=== PATIENT | female | born 1980 | race Caucasian/White ===

== ENCOUNTER 2019-09-14 17:11 | Emergency (ER) | payer BC, SELFPAY ==
--- NOTE | ~2019-09-14 | XR_ITS ---
XR ankle RT min 3V 09/14/2019 17:43 Indication: Right ankle pain Procedure: 4 views right ankle Comparison: 12/03/2014 Findings: No acute fracture, subluxation or dislocation. There are corticated ossific densities dista l to the fibula, likely accessory ossicles versus sequela of previous trauma, unchanged. Ankle mortis e intact. Talar dome is normal. Small degenerative calcaneal enthesophyte at the plantar surface. Impression: 1: No acute fracture. Reviewed, dictated and finalized at location A. CAL INSTRUMENT REPAIRER Impression: 1: No acute fracture.
[2019-09-14 17:14] VITALS: BP 131/84; PULSE 101; RESP 20; TEMP 37.7; O2SAT 99
--- NOTE | 2019-09-14 17:19 | ED.GENADULT ---
HPI - General Adult General Chief complaint: Extremity Injury, Lower Stated complaint: rt ankle injury Time Seen by Provider: 09/14/19 17:19 Source: patient Mode of arrival: ambulatory Limitations: no limitations History of Present Illness HPI narrative: 39-year-old female patient presents to the [facility] with complaints of right ankle pain. Patient states that she was at the gym this evening working out and states that she when she came to go and stepped down on her right foot she is unsure exactly what happened but she heard a pop and felt a crack and states she fell. Patient states that she has not been able to bear weight on her right ankle since the injury. Patient states that her mom brought her today and she has been using her mom's walker to get around. Patient denies taking anything for the pain since the incident. Related Data Home Medications Medication Instructions Recorded Confirmed albuterol sulfate [ProAir HFA] INHALATION 09/14/19 alprazolam 09/14/19 aspirin [Aspirin Low Dose] 81 mg PO DAILY 09/14/19 09/14/19 budesonide-formoterol [Symbicort] INHALATION 09/14/19 citalopram mg 09/14/19 hyoscyamine sulfate [Levsin/SL] mg 09/14/19 vit-iron fum-folic ac tablet 09/14/19 [ Vitamin] Allergies Allergy/AdvReac Type Severity Reaction Status Date / Time Sulfa (Sulfonamide Allergy Unknown Rash Unverified 12/27/16 08:55 Antibiotics) sulfamethizole Allergy Unknown Verified 03/12/16 10:18 trimethoprim Allergy Unknown Verified 03/12/16 10:18 Review of Systems Review of Systems: Narrative: CONSTITUTIONAL: Denies fever, chills, or sweats. EYES: Denies visual changes, redness, or discharge. ENT: Denies rhinorrhea, congestion, sore throat, or otalgia. CARDIOVASCULAR: Denies chest pain, palpitations, or edema. RESPIRATORY: Denies cough or dyspnea. GASTROINTESTINAL: Denies abdominal pain, nausea, vomiting, or diarrhea. GENITOURINARY: Denies dysuria or hematuria. SKIN: Denies rash or itching. MUSCULOSKELETAL: Denies back pain, joint pain, or myalgia. Positive right ankle pain NEUROLOGIC: Denies headache, numbness, or weakness. PSYCHIATRIC: Denies anxiety or depression. PMFSH Family History Family History Other Family history of malignant neoplasm Family history of rheumatoid arthritis Hypertension Social History Social History Smoking status: Former smoker Smoking end date: 07/28/11 Alcohol intake: current Comments At the time of my signature I agree with nursing past medical history, surgical, social, and family history. There is no relevant family history pertinent to the presenting complaint. Exam Narrative: Exam Narrative: GENERAL: Well-appearing, well-nourished, and in no acute distress. HEAD: Normocephalic, atraumatic. EYES: PERRLA and EOMI. ENT: Nares clear, no rhinorrhea or epistaxis. Mucous membranes moist. NECK: Supple. No lymphadenopathy CHEST: Clear to auscultation. No respiratory distress. HEART: Regular rate and rhythm. No murmur heard. Normal peripheral pulses. ABDOMEN: Soft, nontender, nondistended, normal active bowel sounds. EXTREMITIES: Patient is unable to bear weight and ambulate without pain to Right ankle. The R ankle is without obvious asymmetry or deformity when compared to the L ankle. Patient can flex/extend, decrease in invert/dallin. No obvious surface trauma, ecchymosis. Patient does have some soft tissue swelling noted over the lateral side of the right ankle. Bony tenderness to palpation over the lateral malleolus. Anterior talofibular ligament, posterior talofibular ligament, calcaneofibular ligament nontender and without swelling. No tenderness or deformity of the midfootor over the proximal fifth metatarsal. Good DP and posterior tibial pulses and sensation to light touch normal. Talar tilt test is negative for ligament laxity to valg
[2019-09-14] MEDS: IBUPROFEN 400 MG TABLET 800 MG PO (17:32)
== END 2019-09-14 18:00 | disposition home or self-care (01) ==
PROVIDERS: Emergency Provider Nurse Practitioner Family; PCP Family Medicine
DX: S93.401A Sprain of unspecified ligament of right ankle, initial encounter (principal); X58.XXXA Exposure to other specified factors, initial encounter; Z87.891 Personal history of nicotine dependence
CPT/HCPCS: 73610; 99213; A9270; G0463

== ENCOUNTER 2020-07-15 08:19 | Outpatient (CLI) | payer BC, SELFPAY ==
--- NOTE | ~2020-07-15 | XR_ITS ---
EXAMINATION: XR chest 2V EXAM DATE: 07/15/2020 08:34 INDICATION: Cough and shortness of breath. Lung bases pain. TECHNIQUE: Frontal and lateral projections of the chest obtained and reviewed. Comparison is made to prior examination from 07/16/2019. FINDINGS: The lungs are clear. There are no pleural effusions. The cardiomediastinal silhouette is within normal limits. There is no pneumothorax suspected. The bones and soft tissues are unremarkab le. There are cholecystectomy clips. IMPRESSION: Normal chest x-ray exam. Reviewed, dictated and finalized at location A. ME TAX ADVISOR IMPRESSION: Normal chest x-ray exam.
== END 2020-07-15 08:20 | disposition home or self-care (01) ==
PROVIDERS: PCP Family Medicine; Visit Provider Family Medicine
DX: R05 Cough (principal)
CPT/HCPCS: 71046

== ENCOUNTER → 2021-02-27 11:57 | Outpatient (CLI) | payer BC, SELFPAY ==
--- NOTE | ~2021-02-27 | US_ITS ---
EXAMINATION: US thyroid DATE: 02/27/2021 12:14 INDICATION: Goiter. TECHNIQUE: Multiple ultrasound images of the thyroid were obtained. COMPARISON: None. FINDINGS: The right thyroid lobe measures 5.1 x 1.9 x 1.7 cm. The left thyroid lobe measures 4.7 x 1.8 x 1.2 c m. In the right thyroid lobe, there is a 1.2 cm solid, hypoechoic, kwrman-vazj-yeve nodule with smoo th margin without echogenic foci (TI-RADS TR5). In the right thyroid lobe, there is a 1.4 cm solid, h ypoechoic, yhuhv-alhe-wbfg nodule with ill-defined margin without echogenic foci (TR4). In the left t hyroid lobe, there is a 1.3 cm solid, hypoechoic, jctfo-xykg-wxbq nodule with smooth margin without e chogenic foci (TR4). In the left thyroid lobe, there is a 1.5 cm solid, hypoechoic, vxbsm-xrob-dzwe n odule with smooth margin without echogenic foci (TR4). IMPRESSION: 1. Multinodular goiter. Ultrasound-guided fine-needle aspiration of 2 nodules is recommended. Reviewed, dictated and finalized at location A. IMPRESSION: 1. Multinodular goiter. Ultrasound-guided fine-needle aspiration of 2 nodules i s recommended.
== END ==
PROVIDERS: PCP Student in an Organized Health Care Education/Training Program; Visit Provider Internal Medicine Endocrinology, Diabetes & Metabolism
DX: E04.2 Nontoxic multinodular goiter (principal)
CPT/HCPCS: 76536

== ENCOUNTER 2021-03-15 08:23 | Day surgery (SDC) | payer BC, SELFPAY ==
[2021-03-15] VITALS (12 sets, daily range): BP systolic 107–133; BP diastolic 53–102; PULSE 60–98; RESP 14–20; TEMP 36–36.4; O2SAT 97–100
--- NOTE | ~2021-03-15 | CT_ITS ---
EXAMINATION: CT abdomen pelvis w con DATE: 03/15/2021 10:10 INDICATION: Diffuse abdominal pain TECHNIQUE: Computed tomography (CT) of the abdomen and pelvis was performed with 100 cc Omnipaque 350 intravenous contrast. The dose-length product was 1485.61 mGy-cm. Automated exposure control and ite rative reconstruction technique were employed. COMPARISON: CT dated 12/23/2007. FINDINGS: There is a 9 mm right lower lobe nodule. There is dependent atelectasis. Status post cholec ystectomy with expected prominence of the bile ducts. There is a 1.5 cm hypodense lesion of the left hepatic lobe. There is a focal hypodensity near the falciform ligament which may represent fatty infi ltration. There is a cyst along the seventh capsular aspect of the left hepatic lobe anteriorly measu ring 12 mm. The spleen, pancreas, adrenal glands and right kidney are unremarkable. There is a left r enal cyst. Colonic diverticulosis without evidence for diverticulitis. Nonobstructive bowel pattern. There is a thickened enhancing appendix, consistent with acute appendicitis. Appendix measures 11.5 mm transvers josseline. No evidence for perforation or abscess. No abnormal pelvic masses or fluid collections. No acute osseous abnormality. There is degenerative disc disease at L5-S1. No evidence for fracture or spondy lolisthesis. IMPRESSION: 1. Acute uncomplicated appendicitis. 2: Right lower lobe nodule measuring 9 mm. Recommend follow-up low dose CT chest and abdomen in 3 mo nths to assess stability. 3: Left hepatic lobe mass measuring 1.5 cm, likely benign in the absence of known malignancy. Recomme nd attention to this area on follow-up CT examination. Reviewed, dictated and finalized at location A. IMPRESSION: 1. Acute uncomplicated appendicitis. 2: Right lower lobe nodule measuring 9 mm. Recommend follow-up low dose CT [address] and abdomen in 3 months to assess stability. 3: Left hepatic lobe mass measuring 1.5 cm, likely benign in the absence of kno wn malignancy. Recommend attention to this area on follow-up CT examination.
--- NOTE | 2021-03-15 08:37 | ED.ABDPAIN ---
HPI - Abdominal Pain General Chief Complaint: Abdominal Pain Stated Complaint: abd pain Time Seen by Provider: 03/15/21 08:37 Source: patient Mode of arrival: ambulatory Limitations: no limitations History of Present Illness HPI narrative: Patient is a 41 yo female with a history of IBS who presents for evaluation of generalized adominal pain. Patient with pain in the epigastric region with radiation to the left flank. Pt reports nausea and vomiting, non bloody, non bilious. She denies fever or chills. She took Levsin, tramadol and CBD at home to try to help with the pain. She has had no improvement with these. She reports diarrhea, but no change from baseline. No urinary symptoms. No recent sick contacts. No lower pelvic pain, no vaginal bleeding or discharge. Pt has followed with Dr. Coates in the past for GI issues. Was diagnosed with IBS from his evaluations. Related Data Home Medications Medication Instructions Recorded Confirmed albuterol sulfate [ProAir HFA] INHALATION 09/14/19 alprazolam 09/14/19 aspirin [Aspirin Low Dose] 81 mg PO DAILY 09/14/19 09/14/19 budesonide-formoterol [Symbicort] INHALATION 09/14/19 citalopram mg 09/14/19 hyoscyamine sulfate [Levsin/SL] mg 09/14/19 vit-iron fum-folic ac tablet 09/14/19 [ Vitamin] Allergies Allergy/AdvReac Type Severity Reaction Status Date / Time Sulfa (Sulfonamide Allergy Unknown Rash Verified 03/15/21 08:42 Antibiotics) sulfamethizole Allergy Unknown Unknown Verified 03/15/21 08:42 trimethoprim Allergy Unknown Unknown Verified 03/15/21 08:42 Review of Systems Review of Systems: CONSTITUTIONAL: Denies fever, chills, or sweats. EYES: Denies visual changes, redness, or discharge. ENT: Denies rhinorrhea, congestion, sore throat, or otalgia. CARDIOVASCULAR: Denies chest pain, palpitations, or edema. RESPIRATORY: Denies cough or dyspnea. GASTROINTESTINAL: Reports abdominal pain, nausea and vomiting, reports diarrhea GENITOURINARY: Denies dysuria or hematuria. SKIN: Denies rash or itching. MUSCULOSKELETAL: Denies back pain, joint pain, or myalgia. NEUROLOGIC: Denies headache, numbness, or weakness. PMFSH Past Medical History Medical History Contusion of ankle Endometriosis IBS (irritable bowel syndrome) Moderate ankle sprain Retrocalcaneal bursitis (back of heel) Surgical History Surgical History History of D&C History of endometrial ablation History of laparoscopic cholecystectomy History of laparoscopy Family History Family History Other Family history of malignant neoplasm Family history of rheumatoid arthritis Hypertension Social History Social History Smoking status: Former smoker Smoking end date: 07/28/11 Alcohol intake: current Exam Narrative: GENERAL: Awake, alert, conversant HEAD: Normocephalic, atraumatic. EYES: PERRLA and EOMI. ENT: Nares clear, no rhinorrhea or epistaxis. Mucous membranes moist. NECK: Supple. CHEST: No respiratory distress, breathing even and non labored HEART: Regular rate, sinus rhythm ABDOMEN:Non distended, mildly tender throughout, no rebound or guarding EXTREMITIES: Normal range of motion. No edema. SKIN: Warm, dry, no rash. NEURO:No focal deficits. Alert and oriented x3 Course Vital Signs Vital signs: Vital Signs Temperature 36.4 C 03/15/21 08:33 Pulse Rate 76 03/15/21 08:33 Respiratory Rate 18 03/15/21 08:33 Blood Pressure 133/102 H 03/15/21 08:33 Pulse Oximetry 98 03/15/21 08:33 Temperature 36.4 C 03/15/21 08:33 Pulse Rate 70 03/15/21 11:19 Respiratory Rate 17 03/15/21 11:19 Blood Pressure 124/94 H 03/15/21 11:19 Pulse Oximetry 100 03/15/21 11:19 MDM - Abdominal Pain MDM Narrative Medical decision farhad
[2021-03-15 09:21] LABS: Basophils Percent Auto 0.2 % (0.2-1.2); Eosinophils Absolute Auto 0.1 K/mm3 (0-0.3); Eosinophils Percent Auto 0.6 % (0-4.4); Hematocrit 41.3 % (37.0-47.0); Hemoglobin 13.3 g/dL (12.0-15.0); Immature Granulocyte Absolute 0.06 K/mm3 (0.00-0.031); Immature Granulocyte Percent A 0.5 % (0-0.5); Lymphocytes Absolute Auto 1.45 K/mm3 (0.9-3.2); Mean Corpuscular HGB Conc 32.2 g/dl (32-36); Mean Corpuscular Hemoglobin 29.8 pg (26-34); Mean Corpuscular Volume 92.6 fl (80-100); Mean Platelet Volume 11.5 fl (7.4-10.4); Monocytes Absolute Auto 0.7 K/mm3 (0.1-0.6); Neutrophils Absolute Auto 10.9 K/mm3 (1.3-6.7); Neutrophils Percent Auto 82.7 % (45.5-73.1); Platelet Count Result 206 k/mm3 (150-375); Red Blood Count 4.46 M/mm3 (4.2-5.4); Red Cell Distribution Width 12.6 % (11.5-14.5); White Blood Count 13.1 K/mm3 (4.5-10.0)
[2021-03-15] MEDS: SODIUM CHLORIDE 0.9% IV 1,000 ML 999 ML IV CONT (09:31)
[2021-03-15] MEDS: FAMOTIDINE 20 MG/2 ML VIAL IV PUSH ×2 (09:33→11:04)
[2021-03-15 09:34] LABS: Alanine Aminotransferase 21 U/L (4-35); Albumin Level 4.5 g/dL (3.5-5.1); Alkaline Phosphatase 95 U/L (38-126); Anion Gap 7 mmol/L (8-16); Aspartate Amino Transferase 25 U/L (14-36); Bilirubin,Total 0.4 mg/dL (0.2-1.3); Blood Urea Nitrogen 21 mg/dL (7-17); Calcium 9.4 mg/dL (8.4-10.2); Carbon Dioxide 21 mmol/L (22-30); Chloride 108 mmol/L (98-107); Estimated CRCL calculation 102 ml/min; Estimated Glomerular Filt Rate > 60; Glucose 100 mg/dL (65-110); Lipase 95 U/L (23-300); Potassium 4.7 mmol/L (3.4-5.0); Sodium 136 mmol/L (137-145)
[2021-03-15] MEDS: MORPHINE SULFATE (*CRX) 4 MG/ML INJ IV PUSH (09:34)
[2021-03-15] MEDS: ONDANSETRON INJ 4 MG/2 ML VIAL IV PUSH (09:34)
[2021-03-15 09:44] LABS: Add Urine Microscopic? NO; Appearance Urine Clear (Clear); Bilirubin Urine Negative (Negative); Blood Urine Negative (Negative); Color Urine Yellow (Yellow); Glucose Urine UA Negative (Negative); Ketones Urine Negative (Negative); Leukocyte Esterase Ur Negative LEU/UL (Negative); Nitrate Urine Negative (Negative); Protein Urine Negative (Negative); Specific Grav Ur 1.021 (1.001-1.035); Urobilinogen Urine Negative mg/dL (<2.0)
[2021-03-15] MEDS: HYDROmorphone HCL INJ (*CRX) 1 MG/ML SYR 0.5 MG IV PUSH (10:46)
--- NOTE | 2021-03-15 11:43 | PM.IMHP ---
H&P: HPI History of Present Illness Date/Time: 03/15/21 11:43 Chief Complaint: Generalized abdominal pain Narrative: This is a 41-year-old woman who presented to the emergency department with abdominal pain that started around 2:30 this morning. She states that pain was epigastric and also has been present in both lower quadrants. She was also experiencing nausea and vomiting. She has a history of IBS and thought this might be related to that at 1st, but pain continued to progress and she decided to come into the ED. she denies any other ill contacts and denies prior history of pain like this in the past. She does have chronic diarrhea from IBS, but no other change in bowel habits. No urinary difficulties. Review of Systems Review of Systems: All systems reviewed & are unremarkable except as noted in HPI and below Constitutional: Constitutional: Denies chills and Denies fever(s) Eyes: Eyes: Denies change in vision ENT: Denies hearing loss, Denies neck pain and Denies sore throat Cardiovascular: Cardiovascular: Denies chest pain and Denies dyspnea Respiratory: Respiratory: Denies cough, Denies dyspnea and Denies wheezing Gastrointestinal: Gastrointestinal: Reports as per HPI Genitourinary: Genitourinary: Denies hematuria and Denies dysuria Musculoskeletal: Musculoskeletal: Denies arthralgias, Denies joint swelling and Denies neck pain Allergic/Immunologic: Allergic/Immunologic: Denies wheezing PMFSH Past Medical History Medical History Contusion of ankle Endometriosis IBS (irritable bowel syndrome) Moderate ankle sprain Retrocalcaneal bursitis (back of heel) Surgical History Surgical History History of D&C History of endometrial ablation History of laparoscopic cholecystectomy History of laparoscopy Family History Family History Other Family history of malignant neoplasm Family history of rheumatoid arthritis Hypertension Social History Social History Smoking status: Former smoker Smoking end date: 07/28/11 Alcohol intake: current Meds Home Medications and Allergies Home Medications Medication Instructions Recorded Confirmed Type albuterol sulfate [ProAir HFA] INHALATION 09/14/19 History alprazolam 09/14/19 History aspirin [Aspirin Low Dose] 81 mg PO DAILY 09/14/19 09/14/19 History budesonide-formoterol [Symbicort] INHALATION 09/14/19 History citalopram mg 09/14/19 History hyoscyamine sulfate [Levsin/SL] mg 09/14/19 History vit-iron fum-folic ac tablet 09/14/19 History [ Vitamin] Allergies Allergy/AdvReac Type Severity Reaction Status Date / Time Sulfa (Sulfonamide Allergy Unknown Rash Verified 03/15/21 08:42 Antibiotics) sulfamethizole Allergy Unknown Unknown Verified 03/15/21 08:42 trimethoprim Allergy Unknown Unknown Verified 03/15/21 08:42 Vital Signs Vital Signs - 24 hr 03/15/21 08:33 03/15/21 11:19 Temperature 36.4 C Pulse Rate 76 70 Respiratory Rate 18 17 Blood Pressure 133/102 H 124/94 H Pulse Oximetry 98 100 Exam Const: General: alert; No acute distress Orientation/consciousness: patient oriented x3 Limitations: no limitations HENMT: Head: normocephalic and atraumatic Ears: hearing grossly normal bilaterally General nose exam: Normal external nose present and Normal nares present Mouth: Yes Normal oral and palatal mucosa present and Yes moist mucous membranes Eyes: General: appearance normal, both eyes and all related structures Conjunctivae: conjunctivae normal Sclera: sclerae normal Pupils: Equal, round and reactive pupils present EOM: EOMs intact bilaterally Neck: Neck: normal visual inspection, full ROM, no lymphadenopathy, supple and no JVD Lymphatic: no lymphadenopathy noted Chest:
--- NOTE | 2021-03-15 12:53 | WPDANESEPPF ---
Anes - Initial Pre Proc Eval Procedure: Operation Date: 03/15/21 15:30 Proposed Procedures p Laparoscopic Appendectomy,Possibe Open - Nitish Aden DO Date/Time: 03/15/21 12:53 Surgeon: Nitish Aden DO Pre Op Diagnosis: abd pain Patient Data Age: 41 Gender: F Height: 1.75 m Weight: 120.45 kg Last Vital Signs Temp 36.4 C 03/15/21 08:33 Pulse 70 03/15/21 11:19 Resp 17 03/15/21 11:19 BP 124/94 H 03/15/21 11:19 Pulse Ox 100 03/15/21 11:19 Allergies Allergy/AdvReac Type Severity Reaction Status Date / Time Sulfa (Sulfonamide Allergy Unknown Rash Verified 03/15/21 08:42 Antibiotics) sulfamethizole Allergy Unknown Unknown Verified 03/15/21 08:42 trimethoprim Allergy Unknown Unknown Verified 03/15/21 08:42 Home Medications Medication Instructions Recorded Confirmed Type albuterol sulfate [ProAir HFA] INHALATION 09/14/19 History alprazolam 09/14/19 History aspirin [Aspirin Low Dose] 81 mg PO DAILY 09/14/19 09/14/19 History budesonide-formoterol [Symbicort] INHALATION 09/14/19 History citalopram mg 09/14/19 History hyoscyamine sulfate [Levsin/SL] mg 09/14/19 History vit-iron fum-folic ac tablet 09/14/19 History [ Vitamin] Laboratory Tests 03/15/21 03/15/21 03/15/21 09:13 09:13 09:28 WBC 13.1 K/mm3 H K/mm3 (4.5-10.0) RBC 4.46 M/mm3 M/mm3 (4.2-5.4) Hgb 13.3 g/dL g/dL (12.0-15.0) Hct 41.3 % % (37.0-47.0) MCV 92.6 fl fl (80-100) MCH 29.8 pg pg (26-34) MCHC 32.2 g/dl g/dl (32-36) RDW 12.6 % % (11.5-14.5) Plt Count 206 k/mm3 k/mm3 (150-375) MPV 11.5 fl H fl (7.4-10.4) Immature Gran % (Auto) 0.5 % % (0-0.5) Neut % (Auto) 82.7 % H % (45.5-73.1) Lymph % (Auto) 11.0 % L % (18.3-44.2) [place] % (Auto) 5.0 % % (2.6-8.5) Eos % (Auto) 0.6 % % (0-4.4) Baso % (Auto) 0.2 % % (0.2-1.2) Lymph # (Auto) 1.45 K/mm3 K/mm3 (0.9-3.2) [place] # (Auto) 0.7 K/mm3 H K/mm3 (0.1-0.6) Eos # (Auto) 0.1 K/mm3 K/mm3 (0-0.3) Baso # (Auto) 0.0 K/mm3 K/mm3 (0.0-0.1) Abs Immat Gran (auto) 0.06 K/mm3 H K/mm3 (0.00-0.031) Absolute Neuts (auto) 10.9 K/mm3 H K/mm3 (1.3-6.7) Absolute Nucleated RBC 0.0 K/mm3 K/mm3 (0.0-0.012) Nucleated RBC % 0.0 % % (0.0-0.2) Sodium 136 mmol/L L mmol/L (137-145) Potassium 4.7 mmol/L mmol/L (3.4-5.0) Chloride 108 mmol/L H mmol/L (98-107) Carbon Dioxide 21 mmol/L L mmol/L (22-30) Anion Gap 7 mmol/L L mmol/L (8-16) BUN 21 mg/dL H mg/dL (7-17) Creatinine 0.90 mg/dL mg/dL (0.7-1.0) Estim Creat Clear Calc 102 ml/min ml/min Estimated GFR > 60 (59 - ) Glucose 100 mg/dL mg/dL (65-110) Calcium 9.4 mg/dL mg/dL (8.4-10.2) Total Bilirubin 0.4 mg/dL mg/dL (0.2-1.3) AST 25 U/L U/L (14-36) ALT 21 U/L U/L (4-35) Alkaline Phosphatase 95 U/L U/L (38-126) Total Protein 8.0 g/dL g/dL (6.3-8.2) Albumin 4.5 g/dL g/dL (3.5-5.1) Lipase 95 U/L U/L (23-300) Urine Color Yellow (Yellow) Urine Appearance Clear (Clear) Urine pH 6.0 (5.0-9.0) Ur Specific [place] 1.021 (1.001-1.035) Urine Protein Negative mg/dL mg/dL (Negative) Urine Glucose (UA) Negative mg/dL mg/dL (Negative) Urine Ketones Negative mg/dL mg/dL (Negative) Ur Blood (Man) Negative (Negative) Urine Nitrate Negative (Negative) Urine Bilirubin Negative (Negative) Urine Urobilinogen Negative mg/dL mg/dL (<2.0) Leukocyte Esterase Rfl Negative MILTON/UL MILTON/UL (Negative) Patient hx anesthesia
[2021-03-15] MEDS: SODIUM CHLORIDE 0.9% IV 1,000 ML 150 ML IV CONT (13:21)
[2021-03-15] MEDS: KETOROLAC 15 MG/ML VIAL (*BKC) IV PUSH (13:23)
--- NOTE | 2021-03-15 14:56 | WPDHPUPDATE1 ---
History and Physical Update Update Date/Time: 03/15/21 14:56 History and Physical has been reviewed, including an updated exam of the patient. There are NO changes in the patient's condition. Risks, benefits, and alternatives have been discussed and questions answered. Patient agrees to proceed with procedure.
[2021-03-15] MEDS: LACTATED RINGERS 1,000 ML 30 ML IV CONT ×2 (15:07→16:45)
[2021-03-15] MEDS: BUPIVACAINE/EPINEPHRINE 0.5% 30 ML VIAL INFILTRATE (15:42)
--- NOTE | 2021-03-15 17:33 | W.PM.PROC2 ---
Procedure Note - Detailed Date of Procedure 03/15/21 Pre-op Diagnosis Acute appendicitis Post-op Diagnosis same Procedure Performed Laparoscopic appendectomy Surgeon Nitish Aden, DO Anesthesia general and local (0.5% bupivicaine with epinephrine) Indications This is a 41-year-old woman who presented to the emergency department today with complaints of abdominal pain that woke her from sleep around 230 this morning. She has had generalized abdominal pain and epigastric pain. She was also experiencing nausea and vomiting. She denies any fevers or chills. Workup in the emergency department showed evidence of an elevated white blood count and CT showed evidence acute appendicitis. Discussions were made with the patient about treatment options and decision was made to proceed with laparoscopic appendectomy, possible open. Findings Laparoscopic appendectomy was performed. The appendix appeared to be in a retrocecal retroperitoneal location. The appendix was dilated and inflamed, but there was no evidence of perforation or abscess. No other intra-abdominal abnormalities were noted. The base of the appendix appeared healthy and viable. The appendix was removed and sent to the lab for pathology. Description of Procedure Procedure as well as risks, benefits, and alternatives were explained to the patient. The patient agreed to proceed. Written consent was obtained and placed in chart prior to procedure. The patient was brought back to surgical suite. She was placed supine on operating table. Time-out was done to confirm the patient and procedure. The patient was then intubated by the Anesthesia Department. She abdomen was prepped and draped in sterile fashion using chlorhexidine prep. A 5 mm incision was made just to the left of the patient's umbilicus and a 5 mm Optiview trocar was advanced through the abdominal layers under direct visualization. Once inside the peritoneal cavity, carbon dioxide insufflation was used to create a pneumoperitoneum. The camera was inserted and the abdomen was inspected. No immediate abnormalities were identified. The patient was then placed in slight Trendelenburg position and rotated to the left. A 5 mm incision was made in the suprapubic region in midline and a 5 mm trocar was inserted under direct visualization. A 12 mm incision was made in the left lower quadrant and a 12 mm trocar was inserted under direct visualization. The right lower quadrant was carefully inspected. The cecum was identified and then this was traced back to the appendix. The appendix was identified and grasped at the mesoappendix and lifted anteriorly. Careful blunt dissection was carried out at the base of the appendix through the mesoappendix using a [place] grasper. An Endo-KRISTEN 45 mm blue load stapler was then advanced across the base of the appendix and clamped and fired. A white reload was then clamped across the mesoappendix and fired. This freed up our appendix completely. It was then placed in an EndoCatch bag and removed through the left lower quadrant port. The staple lines were then inspected. Hemostasis appeared adequate and the staple lines appeared secure. The area was then irrigated with sterile saline. The pelvis was then carefully inspected and irrigated with sterile saline as well and the remainder of the abdomen was carefully inspected. The patient was then flattened out in bed. One final inspection was made around the abdominal cavity and no other abnormalities were seen. The left lower quadrant port was removed and a Omar-Isabel cone was used to approximate the fascia with an 0 Vicryl simple interrupted suture. The remaining ports were then removed under direct visualization. The camera was removed and the pneumoperitoneum was released. 0.5% bupivacaine with epinephrine was infiltrated locally around each of the incisions. The skin of the incisions was then approximated using 4-0 Monocryl subcuticular suture an
== END 2021-03-15 18:31 | disposition home or self-care (01) ==
LOC: ANHED 11:13 → ANHSURGERY 11:27
PROVIDERS: Emergency Provider Emergency Medicine; PCP Student in an Organized Health Care Education/Training Program; Visit Provider Surgery
PROC: 0DTJ4ZZ Resection of Appendix, Percutaneous Endoscopic Approach (ICD-10-PCS; CPT 44970; principal; 2021-03-15 15:30)
DX: K35.30 Acute appendicitis with localized peritonitis, without perforation or gangrene (principal); R10.9 Unspecified abdominal pain; Z79.82 Long term (current) use of aspirin; Z79.51 Long term (current) use of inhaled steroids; N80.9 Endometriosis, unspecified; K58.9 Irritable bowel syndrome, unspecified; Z87.891 Personal history of nicotine dependence; E66.9 Obesity, unspecified; Z68.39 Body mass index [BMI] 39.0-39.9, adult; R10.84 Generalized abdominal pain; R10.13 Epigastric pain
CPT/HCPCS: 44970; 36415; 74177; 80053; 81003; 81025; 83690; 85025; 88304; 96361; 96374; 96375; 99285; J0131; J0330; J1100; J1170; J1885; J2250; J2270; J2405; J2543; J2704; J3010; J7030; J7120; Q9967

== ENCOUNTER → 2021-07-24 10:47 | Outpatient (CLI) | payer BC, SELFPAY ==
[2021-07-25 03:59] LABS: SARS-CoV-2 RNA PCR Negative
== END ==
PROVIDERS: PCP Student in an Organized Health Care Education/Training Program; Visit Provider Student in an Organized Health Care Education/Training Program
DX: R50.9 Fever, unspecified (principal); Z20.822 Contact with and (suspected) exposure to COVID-19
CPT/HCPCS: C9803; U0003; U0005

== ENCOUNTER 2022-04-30 02:05 | Day surgery (SDC) | payer BC, SELFPAY ==
[2022-04-15 14:12] VITALS: BMI 40.0
[2022-04-30 09:19] VITALS: BP 134/87; PULSE 96; RESP 18; TEMP 36.3; O2SAT 98
[2022-04-30] MEDS: LACTATED RINGERS 1,000 ML 150 ML IV CONT (09:22)
--- NOTE | 2022-04-30 09:38 | WPDANESEPPF ---
Anes - Initial Pre Proc Eval Procedure: Operation Date: 04/30/22 10:45 Proposed Procedures p Colonoscopy - Carlos Bhatt MD Date/Time: 04/30/22 09:38 Surgeon: Carlos Bhatt MD Pre Op Diagnosis: IBS Patient Data Age: 42 Gender: F Height: 1.75 m Weight: 126.2 kg Last Vital Signs Temp 97.3 F L 04/30/22 09:19 Pulse 96 04/30/22 09:19 Resp 18 04/30/22 09:19 BP 134/87 04/30/22 09:19 Pulse Ox 98 04/30/22 09:19 O2 Del Method Room Air 04/30/22 09:19 Allergies Allergy/AdvReac Type Severity Reaction Status Date / Time Sulfa (Sulfonamide Allergy Unknown Rash Verified 04/30/22 09:18 Antibiotics) sulfamethizole Allergy Unknown Unknown Verified 04/30/22 09:18 trimethoprim Allergy Unknown Unknown Verified 04/30/22 09:18 latex Allergy Rash Verified 04/30/22 09:18 cefdinir AdvReac Nausea and Verified 04/30/22 09:18 Vomiting Home Medications Medication Instructions Recorded Confirmed Type albuterol sulfate 90 mcg/actuation 1 inh inhalation DAILY PRN 09/14/19 04/30/22 History aerosol inhaler (ProAir HFA) Shortness Of Breath alprazolam 0.5 mg tablet 0.5 mg DAILY PRN Anxiety 09/14/19 04/30/22 History aspirin 81 mg tablet,delayed 81 mg PO DAILY 09/14/19 04/30/22 History release (Agnes Low Dose Aspirin) budesonide-formoterol HFA 80 1 inh inhalation DAILY 09/14/19 04/30/22 History mcg-4.5 mcg/actuation aerosol inhaler (Symbicort) citalopram 20 mg tablet 20 mg PO DAILY 09/14/19 04/30/22 History hyoscyamine sulfate 0.125 mg 0.125 mg PO DAILY 09/14/19 04/30/22 History sublingual tablet (Levsin/SL) hydrochlorothiazide 12.5 mg capsule 12.5 mg PO DAILY 04/15/22 04/30/22 History levothyroxine 25 mcg tablet 225 mcg PO DAILY 04/15/22 04/30/22 History pantoprazole 40 mg tablet,delayed 40 mg PO DAILY 04/15/22 04/30/22 History release phentermine 15 mg capsule 15 mg PO DAILY 04/15/22 04/30/22 History sucralfate 1 gram tablet 1 g PO DAILY PRN Acid Reflux 04/15/22 04/30/22 History syringe with needle 3 mL 25 x 5/8 04/15/22 04/30/22 History (BD Luer-Francisco Syringe) Patient hx anesthesia problems: none Family hx anesthesia problems: none Results Review: All pre-operative results and documents have been reviewed as part of the pre-operative evaluation. [facility], LAT[facility] Past Medical History Medical History (Updated 03/26/22 @ 15:25 by LISA Jones) BMI 39.0-39.9,adult Contusion of ankle Endometriosis IBS (irritable bowel syndrome) Impingement syndrome, hip Left hip pain Moderate ankle sprain Retrocalcaneal bursitis (back of heel) Surgical History Surgical History History of D&C History of endometrial ablation History of laparoscopic appendectomy History of laparoscopic cholecystectomy History of laparoscopy Family History Family History Other Family history of malignant neoplasm Family history of rheumatoid arthritis Hypertension Social History Social History Smoking packs per day: 0.5 Smoking cigarettes per day: 10.0 Years smoked: 14 Smoking pack-years: 7.00 Smoking status: Never smoker Tobacco type: cigarettes Smoking end date: 07/28/11 Alcohol intake: current Drinks per week: 3 Substance use type: does not use Living arrangements: with family Spiritual care concerns: No Anes - Eval Final PreProcedure Day of Procedure 04/30/22 09:38 Patient weight: morbidly obese Heart: regular rate and rhythm Lungs: clear to auscultation Airway: Mallampati scale class II Neurological: alert and oriented Last oral intake: >/= 8 hours ASA classification: III Emergent: no Anesthetic plan: proceed Anesthesia type and monitoring: general GIVS and standard monitoring Results Review: All pre-operative results and documents have been reviewed as part of the pre-operativ
--- NOTE | 2022-04-30 10:00 | PM.HPGS ---
History of Present Illness History of Present Illness Consent: Risks, benefits, and alternatives have been discussed and questions answered. Patient agrees to proceed with procedure. Chief complaint: IBS Narrative: Wilda Shore is a 42 year old female with ibs-d for years, last colonoscopy 11 years ago, she is using levsin and has not used other anti-diarrheal, she is also post cholecystectomy Review of Systems Constitutional: Constitutional: Denies headache(s) and Denies weakness Eyes: Eyes: Denies blurry vision ENT: Reports Normal hearing present, Denies headache(s) and Denies neck pain Cardiovascular: Cardiovascular: Denies chest pain and Denies dyspnea Respiratory: Respiratory: Denies dyspnea Gastrointestinal: Gastrointestinal: Reports no additional gastrointestinal complaints Genitourinary: Genitourinary: Denies dysuria Musculoskeletal: Musculoskeletal: Denies neck pain Integumentary/Breasts: Skin/Breast: Denies dry skin Neurologic: Reports Normal hearing present, Denies headache(s) and Denies weakness Psychiatric: Psychiatric: Denies anxiety Endocrine: Endocrine: Denies change in body appearance Hematologic/Lymphatic: Hematologic/Lymphatic: Denies easy bleeding Allergic/Immunologic: Allergic/Immunologic: Denies urticaria PMFSH Past Medical History Medical History (Updated 04/30/22 @ 10:01 by Carlos Bhatt MD) BMI 39.0-39.9,adult Contusion of ankle Endometriosis IBS (irritable bowel syndrome) Impingement syndrome, hip Left hip pain Moderate ankle sprain Retrocalcaneal bursitis (back of heel) Surgical History Surgical History History of D&C History of endometrial ablation History of laparoscopic appendectomy History of laparoscopic cholecystectomy History of laparoscopy Family History Family History Other Family history of malignant neoplasm Family history of rheumatoid arthritis Hypertension Social History Social History Smoking packs per day: 0.5 Smoking cigarettes per day: 10.0 Years smoked: 14 Smoking pack-years: 7.00 Smoking status: Never smoker Tobacco type: cigarettes Smoking end date: 07/28/11 Alcohol intake: current Drinks per week: 3 Substance use type: does not use Living arrangements: with family Spiritual care concerns: No Meds Home Medications and Allergies Home Medications Medication Instructions Recorded Confirmed Type albuterol sulfate 90 mcg/actuation 1 inh inhalation DAILY PRN 09/14/19 04/30/22 History aerosol inhaler (ProAir HFA) Shortness Of Breath alprazolam 0.5 mg tablet 0.5 mg DAILY PRN Anxiety 09/14/19 04/30/22 History aspirin 81 mg tablet,delayed 81 mg PO DAILY 09/14/19 04/30/22 History release (Agnes Low Dose Aspirin) budesonide-formoterol HFA 80 1 inh inhalation DAILY 09/14/19 04/30/22 History mcg-4.5 mcg/actuation aerosol inhaler (Symbicort) citalopram 20 mg tablet 20 mg PO DAILY 09/14/19 04/30/22 History hyoscyamine sulfate 0.125 mg 0.125 mg PO DAILY 09/14/19 04/30/22 History sublingual tablet (Levsin/SL) hydrochlorothiazide 12.5 mg capsule 12.5 mg PO DAILY 04/15/22 04/30/22 History levothyroxine 25 mcg tablet 225 mcg PO DAILY 04/15/22 04/30/22 History pantoprazole 40 mg tablet,delayed 40 mg PO DAILY 04/15/22 04/30/22 History release phentermine 15 mg capsule 15 mg PO DAILY 04/15/22 04/30/22 History sucralfate 1 gram tablet 1 g PO DAILY PRN Acid Reflux 04/15/22 04/30/22 History syringe with needle 3 mL 25 x 5/8 04/15/22 04/30/22 History (BD Luer-Francisco Syringe) Allergies Allergy/AdvReac Type Severity Reaction Status Date / Time Sulfa (Sulfonamide Allergy Unknown Rash Verified 04/30/22 09:18 Antibiotics) sulfamethizole Allergy Unknown Unknown Verified 04/30/22 09:18 trimethoprim Allergy Unknown Unknown Verified 04/30/22
[2022-04-30 10:17] VITALS: BP 103/57; PULSE 64; RESP 18; O2SAT 98
[2022-04-30 10:27] VITALS: BP 102/59; PULSE 67; RESP 21; O2SAT 99
[2022-04-30 10:37] VITALS: BP 108/67; PULSE 58; RESP 20; O2SAT 100
== END 2022-04-30 10:47 | disposition home or self-care (01) ==
PROVIDERS: PCP Student in an Organized Health Care Education/Training Program; Visit Provider Internal Medicine Gastroenterology
PROC: 0DJD8ZZ Inspection of Lower Intestinal Tract, Via Natural or Artificial Opening Endoscopic (ICD-10-PCS; CPT 45378; principal; 2022-04-30 10:45)
DX: K58.9 Irritable bowel syndrome, unspecified (principal); R19.7 Diarrhea, unspecified; K57.30 Diverticulosis of large intestine without perforation or abscess without bleeding; K64.8 Other hemorrhoids; K58.0 Irritable bowel syndrome with diarrhea; N80.9 Endometriosis, unspecified; Z90.49 Acquired absence of other specified parts of digestive tract; Z79.82 Long term (current) use of aspirin; Z79.51 Long term (current) use of inhaled steroids; Z87.891 Personal history of nicotine dependence; E66.01 Morbid (severe) obesity due to excess calories; Z68.41 Body mass index [BMI] 40.0-44.9, adult
CPT/HCPCS: 45380; 88305; J2704; J7120

== ENCOUNTER 2022-05-23 10:14 | Outpatient (CLI) | payer BC, SELFPAY ==
--- NOTE | ~2022-05-23 | MR_ITS ---
EXAMINATION: MR hip LT wo con DATE: 05/23/2022 11:30 INDICATION: Left hip pain. TECHNIQUE: Magnetic resonance imaging (MRI) of the left hip was performed without intravenous contras t. COMPARISON: Pelvis and left hip radiographs 03/26/2022 FINDINGS: Bones/cartilage: Bone alignment is normal. No fracture. There is severe lower lumbar spondylosis. There is decreased f emoral head/neck offset anterolaterally on both sides, which may be seen with femoral acetabular impi ngement. Large [id number] images of right hip demonstrate mild osteoarthritis. Small vsgmr-[id number] images of left hip demonstrate deep partial thickness cartilage loss anterosuperiorly with acetabula r subchondral cysts, edema-like marrow signal intensity in anterior femoral head, and osteophytes. Labrum: Large iwdpu-ve-ycnq images of right acetabular labrum are normal. Small dchvf-ab-iacg images of left acetabular labrum demonstrate a tear. Fluid: There is a small effusion of left hip joint. There is mild right trochanteric bursitis. Soft tissues: The gluteus minimus and gluteus medius tendons are normal. The hamstring tendon origins are normal. T he iliopsoas tendons are normal. IMPRESSION: 1. Moderate left hip osteoarthritis and mild right hip osteoarthritis. 2. Small left hip joint effusion. Reviewed, dictated and finalized at location A.
== END 2022-05-23 10:15 | disposition home or self-care (01) ==
PROVIDERS: PCP Student in an Organized Health Care Education/Training Program; Visit Provider Nurse Practitioner Family
DX: M16.12 Unilateral primary osteoarthritis, left hip (principal); M25.452 Effusion, left hip
CPT/HCPCS: 73721

== ENCOUNTER 2024-10-05 10:49 | Outpatient (CLI) | payer BC, SELFPAY ==
--- NOTE | ~2024-10-05 | MR_ITS ---
EXAMINATION: MR brain/brain stem wo/w con DATE: 10/05/2024 11:29 INDICATION: Headache, unspecified. TECHNIQUE: Magnetic resonance imaging (MRI) of the brain and brainstem was performed without and with 20 mL ProHance intravenous contrast. COMPARISON: None. FINDINGS: The cerebellar tonsils extend 6 mm inferior to the foramen magnum, consistent with Chiari 1 malformation. There is no intracranial hemorrhage, acute infarction, or abnormal intracranial mass l esion. The ventricles are normal in size. The orbits are normal. The paranasal sinuses are clear. The mastoid air cells are normal. IMPRESSION: 1. Chiari 1 malformation. Reviewed, dictated and finalized at location B. IMPRESSION: 1. Chiari 1 malformation.
== END 2024-10-05 10:50 | disposition home or self-care (01) ==
LOC: MICIMG 10:50
PROVIDERS: PCP Student in an Organized Health Care Education/Training Program; Visit Provider Student in an Organized Health Care Education/Training Program
DX: R51.9 Headache, unspecified (principal); G93.5 Compression of brain
CPT/HCPCS: 70553; A9579

== ENCOUNTER 2024-11-26 12:08 | Outpatient (CLI) | payer BC, SELFPAY ==
--- NOTE | ~2024-11-26 | MR_ITS ---
MRI of the lumbar spine Clinical History: Chiari malformation Technique: Axial T2-weighted images, and sagittal T1-weighted, T2-weighted, and T2 fat-sat images wer e acquired. Findings: There is no fracture or subluxation of the lumbar spine. Vertebral bodies maintain normal h eight and alignment. No bone marrow signal abnormality seen. At L1-L2, there is no disc bulge or herniation. There is mild facet hypertrophy. No spinal canal sten osis or neural foraminal narrowing. At L2-L3, there is mild disc desiccation. There is small disc extrusion extending inferiorly the cent ral aspect of the disc space. No spinal canal stenosis or neural foraminal narrowing. There is mild f acet hypertrophy. At L3-L4, there is no disc bulge or herniation. There is mild to moderate facet hypertrophy. No spina l canal stenosis or neural foraminal narrowing. At L4-L5, there is minimal disc bulge with mild facet arthropathy. No central canal stenosis or neura l foraminal narrowing. L5-S1, there is moderate degenerative disc narrowing. There is mild disc bulge with moderate facet ar thropathy. No central canal stenosis. There is moderate to advanced left neural foraminal narrowing. There is moderate right neural foraminal narrowing. Paravertebral soft tissues are unremarkable. Impression: Small central disc extrusion at L2-L3. No deacon canal stenosis or neural foraminal narrowing. Moderate degenerative spondylosis at L5-S1, with bilateral neural foraminal narrowing. Reviewed, dictated and finalized at [facility]. Impression: Small central disc extrusion at L2-L3. No deacon canal stenosis or neural forami nal narrowing. Moderate degenerative spondylosis at L5-S1, with bilateral neural foraminal vivi rowing.
--- NOTE | ~2024-11-26 | MR_ITS ---
MRI of the cervical spine Clinical History: Chiari malformation Technique: Axial T2-weighted and gradient images, and sagittal T1-weighted, T2-weighted, and STIR griffin ges were acquired. Findings: There is mild reversal normal cervical lordosis. No fracture or subluxation otherwise. No s uspicious bone marrow signal abnormality. No significant disc bulge or herniation seen at any cervical level. No spinal canal stenosis or cord compression seen in the cervical spine. No neural foraminal narrowing evident. Cerebellar tonsils extend below the margin of the foramen magnum, compatible with Chiari I malformati on. No abnormal signal seen in the spinal cord. Paravertebral soft tissues are unremarkable. Impression: Chiari I malformation. Mild reversal normal cervical lordosis. Reviewed, dictated and finalized at location . Impression: Chiari I malformation. Mild reversal normal cervical lordosis.
--- NOTE | ~2024-11-26 | MR_ITS ---
MRI of the thoracic spine Clinical History: Chiari malformation Technique: Axial T2-weighted and gradient images, and sagittal T1-weighted, T2-weighted, and STIR griffin ges were acquired. Findings: There is no fracture or subluxation of the thoracic spine. Vertebral bodies maintain normal height and alignment. No significant bone marrow signal abnormality seen. No significant disc bulge or herniation seen at any thoracic level. No spinal canal stenosis or cord compression. Neural foramina are preserved throughout the thoracic spine. No abnormal signal seen in the spinal cord. No epidural mass or collection. Paravertebral soft tissue s are unremarkable. Impression: Unremarkable exam. Reviewed, dictated and finalized at location M. Impression: Unremarkable exam.
== END 2024-11-26 12:09 | disposition home or self-care (01) ==
LOC: MICIMG 12:14
PROVIDERS: PCP Student in an Organized Health Care Education/Training Program
DX: G93.5 Compression of brain (principal); M51.379 Other intervertebral disc degeneration, lumbosacral region without mention of lumbar back pain or lower extremity pain; M51.26 Other intervertebral disc displacement, lumbar region
CPT/HCPCS: 72141; 72146; 72148